=== PATIENT | female | born 1950 | race Caucasian/White ===

== ENCOUNTER 2017-09-15 15:35 | Observation (INO) | payer MEDICARE, OTHER ==
[2017-09-15] MEDS ORDERED: morphine 4 MG/ML VIAL IV (16:25)
[2017-09-15] MEDS ORDERED: ONDANSETRON 4 MG INJ IV ×2 (16:30→18:46)
[2017-09-15 17:48] LABS: ADD MAN DIFF? NO
[2017-09-15 17:51] LABS: ABNORMAL IP MESSAGE 1; BASOPHILS % 0.2 % (0.0-2.0); EOSINOPHILS # 0.2 10^3/ul (0.0-0.5); EOSINOPHILS % 1.7 % (0.0-7.0); HEMATOCRIT 32.3 % (37.0-47.0); HEMOGLOBIN 10.6 g/dl (12.0-16.0); LYMPHOCYTES # 4.5 10^3/ul (0.8-2.9); LYMPHOCYTES % 32.4 % (15.0-51.0); MEAN CORPUSCULAR HEMOGLOBIN 29.7 pg (29.0-33.0); MEAN CORPUSCULAR HGB CONC 32.8 g/dl (32.0-37.0); MEAN CORPUSCULAR VOLUME 90.5 fl (82.0-101.0); MEAN PLATELET VOLUME 8.8 fl (7.4-10.4); NEUTROPHIL # 7.1 10^3/ul (1.6-7.5); NEUTROPHILS % 50.5 % (39.0-77.0); PLATELET COUNT 512 10^3/UL (140-415); RED BLOOD COUNT 3.57 10^6/ul (4.20-5.40)
[2017-09-15 17:52] LABS: POSITIVE DIFF @See below
[2017-09-15 18:07] LABS: ANION GAP 15 (8-16); BLOOD UREA NITROGEN 27 mg/dl (7-20); CALCIUM 8.7 mg/dl (8.4-10.2); CARBON DIOXIDE 28 mmol/L (21-31); CHLORIDE 90 mmol/L (97-110); GLUCOSE 94 mg/dl (70-220); POTASSIUM 4.8 mmol/L (3.5-5.1); SODIUM 128 mmol/L (135-144)
[2017-09-15] MEDS: HYDROmorphONE 1 MG/ML SYG IV (19:58)
[2017-09-15] MEDS: ONDANSETRON 4 MG INJ IV (19:58)
[2017-09-16] MEDS ORDERED: hydrALAzine 20 MG INJ IV (01:00)
[2017-09-16] MEDS ORDERED: ACETAMINOPHEN 325 MG TAB PO (01:00)
[2017-09-16] MEDS: morphine 2 MG INJ IV ×3 (01:19→11:50)
[2017-09-16] MEDS: HYDROCODONE/APAP (5/325) TAB PO ×2 (02:43→10:04)
[2017-09-16] MEDS: ALBUTEROL/IPRATROPIUM (NEB) 3 ML AMP HHN (08:39)
[2017-09-16] MEDS: ENOXAPARIN 40 MG/0.4 ML SYG SC ×2 (09:00→09:58)
[2017-09-16] MEDS: ACETAMINOPHEN 325 MG TAB PO (09:56)
[2017-09-16] MEDS: ASPIRIN 81 MG TAB PO (09:56)
[2017-09-16] MEDS: LORAZEPAM 1 MG TAB PO (14:28)
[2017-09-16] MEDS ORDERED: LORAZEPAM 1 MG TAB PO (15:30)
[2017-09-16] MEDS: CEFTRIAXONE 1 GM/50 ML (PMX) 50 ML IVPB (16:00)
[2017-09-16] MEDS ORDERED: OXYCODONE/ACETAMINOPHEN (5/325) TAB PO (18:00)
[2017-09-16] MEDS ORDERED: NAPROXEN 500 MG TAB PO (21:00)
[2017-09-16] MEDS ORDERED: BENAZEPRIL 40 MG TAB PO (21:00)
[2017-09-16] MEDS ORDERED: QUETIAPINE 100 MG TAB PO (21:00)
[2017-09-17] MEDS ORDERED: AMLODIPINE 5 MG TAB PO (09:00)
[2017-09-17] MEDS ORDERED: FUROSEMIDE 20 MG TAB PO (09:00)
[2017-09-17] MEDS ORDERED: ISOSORBIDE MONONITRATE(SR)60 MG TAB PO (09:00)
[2017-09-17] MEDS ORDERED: RIVASTIGMINE 1.5 MG CAP PO (09:00)
[2017-09-17] MEDS ORDERED: DONEPEZIL 10 MG TAB PO (09:00)
== END 2017-09-16 16:30 | disposition left against medical advice (07) ==
LOC: MS1 16:25 → E/R 15:35
DX: M25.551 Pain in right hip (principal); I10 Essential (primary) hypertension; F41.9 Anxiety disorder, unspecified; F32.9 Major depressive disorder, single episode, unspecified; Z88.2 Allergy status to sulfonamides; Z88.1 Allergy status to other antibiotic agents
CPT/HCPCS: 73500; 80048; 85025; 94664; 96374; 96375; 99285-25

== ENCOUNTER 2017-09-17 10:41 | Observation (INO) | payer MEDICARE, OTHER ==
[2017-09-17] MEDS ORDERED: ONDANSETRON 4 MG INJ IV ×2 (14:00→14:30)
[2017-09-17] MEDS ORDERED: hydrALAzine 20 MG INJ IV (14:30)
[2017-09-17] MEDS: LORAZEPAM 1 MG TAB PO (15:54)
[2017-09-17] MEDS: ACETAMINOPHEN 325 MG TAB PO (15:54)
[2017-09-17] MEDS ORDERED: OXYCODONE/ACETAMINOPHEN (5/325) TAB PO (18:00)
[2017-09-17] MEDS ORDERED: ZIPRASIDONE 20 MG CAP PO (21:00)
[2017-09-17] MEDS ORDERED: QUETIAPINE 100 MG TAB PO (21:00)
[2017-09-17] MEDS ORDERED: BENAZEPRIL 40 MG TAB PO (21:00)
[2017-09-17] MEDS ORDERED: NAPROXEN 500 MG TAB PO (21:00)
[2017-09-18] MEDS ORDERED: RIVASTIGMINE 1.5 MG CAP PO (09:00)
[2017-09-18] MEDS ORDERED: DONEPEZIL 10 MG TAB PO (09:00)
[2017-09-18] MEDS ORDERED: AMLODIPINE 5 MG TAB PO (09:00)
[2017-09-18] MEDS ORDERED: FUROSEMIDE 20 MG TAB PO (09:00)
[2017-09-18] MEDS ORDERED: ISOSORBIDE MONONITRATE(SR)60 MG TAB PO (09:00)
== END 2017-09-17 19:01 | disposition left against medical advice (07) ==
LOC: OBV 13:33 → FTE 10:41
DX: Z53.21 Procedure and treatment not carried out due to patient leaving prior to being seen by health care provider (principal); M25.551 Pain in right hip
CPT/HCPCS: 99282

== ENCOUNTER 2017-09-25 10:37 | Inpatient (IN) | payer MEDICARE, OTHER ==
[2017-09-25 17:55] LABS: ADD MAN DIFF? NO
[2017-09-25 17:57] LABS: WHITE BLOOD COUNT 11.3 10^3/ul (4.8-10.8)
[2017-09-25 17:57] LABS: BASOPHILS % 0.2 % (0.0-2.0); EOSINOPHILS # 0.2 10^3/ul (0.0-0.5); EOSINOPHILS % 1.3 % (0.0-7.0); HEMOGLOBIN 10.7 g/dl (12.0-16.0); LYMPHOCYTES # 2.7 10^3/ul (0.8-2.9); LYMPHOCYTES % 23.4 % (15.0-51.0); MEAN CORPUSCULAR HEMOGLOBIN 30.1 pg (29.0-33.0); MEAN CORPUSCULAR HGB CONC 33.4 g/dl (32.0-37.0); MEAN CORPUSCULAR VOLUME 90.1 fl (82.0-101.0); MEAN PLATELET VOLUME 8.9 fl (7.4-10.4); MONOCYTE # 1.1 10^3/ul (0.3-0.9); NEUTROPHIL # 7.3 10^3/ul (1.6-7.5); NEUTROPHILS % 64.7 % (39.0-77.0); PLATELET COUNT 498 10^3/UL (140-415); RED BLOOD COUNT 3.55 10^6/ul (4.20-5.40); RED CELL DISTRIBUTION WIDTH 14.2 % (11.5-14.5)
[2017-09-25 18:11] LABS: INR 0.87; PROTIME 11.9 Sec (11.9-14.9); PT RATIO 0.9
[2017-09-25 18:12] LABS: PARTIAL THROMBOPLASTIN TIME 26.5 Sec (25.0-35.0)
[2017-09-25 18:18] LABS: ALANINE AMINOTRANSFERASE 40 IU/L (13-69); ALBUMIN 4.3 g/dl (3.3-4.9); ALKALINE PHOSPHATASE 131 IU/L (42-121); ANION GAP 15 (8-16); ASPARTATE AMINO TRANSFERASE 28 IU/L (15-46); BILIRUBIN,INDIRECT 0.1 mg/dl (0-1.1); BILIRUBIN,TOTAL 0.1 mg/dl (0.2-1.3); BLOOD UREA NITROGEN 28 mg/dl (7-20); CALCIUM 9.4 mg/dl (8.4-10.2); CARBON DIOXIDE 26 mmol/L (21-31); CHLORIDE 100 mmol/L (97-110); CREATININE 1.37 mg/dl (0.44-1.00); GLUCOSE 96 mg/dl (70-220); POTASSIUM 4.1 mmol/L (3.5-5.1); SODIUM 137 mmol/L (135-144); TOTAL PROTEIN 7.6 g/dl (6.1-8.1)
[2017-09-25 18:18] LABS: LACTIC ACID 1.2 mmol/L (0.5-2.0)
[2017-09-25 18:31] LABS: TROPONIN-I < 0.012 ng/ml (0.00-0.12)
[2017-09-25 19:17] LABS: ERYTHROCYTE SEDIMENTATION RATE 41 mm/Hr (0-30)
[2017-09-25] MEDS: HYDROCODONE/APAP (10/325) TAB PO (19:18)
[2017-09-25 20:20] LABS: ADD UMIC YES; UR ASCORBIC ACID NEGATIVE (NEGATIVE); UR BACTERIA FEW /HPF (NONE SEEN); UR BILIRUBIN (Dip) NEGATIVE (NEGATIVE); UR BLOOD (Dip) NEGATIVE (NEGATIVE); UR CLARITY CLEAR (CLEAR); UR COLOR STRAW (YELLOW); UR GLUCOSE (Dip) NEGATIVE (NEGATIVE); UR KETONES (Dip) TRACE mg/dL (NEGATIVE); UR LEUKOCYTE ESTERASE (Dip) 2+ Leu/ul (NEGATIVE); UR NITRITE (Dip) NEGATIVE (NEGATIVE); UR RBC 0 /HPF (0-5); UR SPECIFIC GRAVITY (Dip) 1.004 (1.003-1.030); UR TOTAL PROTEIN (Dip) NEGATIVE (NEGATIVE); UR UROBILINOGEN (Dip) NEGATIVE (NEGATIVE); UR WBC 7 /HPF (0-5)
[2017-09-25 21:50] LABS: LACTIC ACID 1.6 mmol/L (0.5-2.0)
== END 2017-09-25 22:45 | disposition left against medical advice (07) | DRG 93 ==
LOC: MS2 21:25 → FTE 10:37 → E/R 22:45
DX: G89.29 Other chronic pain (principal); J44.9 Chronic obstructive pulmonary disease, unspecified; I10 Essential (primary) hypertension; D64.9 Anemia, unspecified; M54.5 Low back pain; N28.9 Disorder of kidney and ureter, unspecified; F31.9 Bipolar disorder, unspecified
CPT/HCPCS: 36415; 71045; 72100; 80053; 81001; 83605; 84484; 85025; 85610; 85651; 85730; 87040; 87086; 93005; 93971; 99285

== ENCOUNTER 2017-09-26 13:34 | Inpatient (IN) | payer MEDICARE, OTHER ==
[2017-09-26] MEDS ORDERED: ALBUTEROL/IPRATROPIUM (NEB) 3 ML AMP HHN (21:00)
[2017-09-26] MEDS ORDERED: ACETAMINOPHEN 325 MG TAB PO (21:00)
[2017-09-26] MEDS: ALBUTEROL/IPRATROPIUM (NEB) 3 ML AMP HHN (21:00)
[2017-09-26] MEDS: DEXTROSE 5%-0.45% NACL 1,000 ML IV (21:51)
[2017-09-26] MEDS: ZOLPIDEM 5 MG TAB PO (21:51)
[2017-09-26] MEDS: KETOROLAC 15 MG INJ IV (21:51)
[2017-09-27] MEDS: LORAZEPAM 1 MG TAB PO ×2 (02:17→15:35)
[2017-09-27 05:52] LABS: ADD MAN DIFF? NO
[2017-09-27 06:05] LABS: BASOPHILS % 0.5 % (0.0-2.0); EOSINOPHILS # 0.1 10^3/ul (0.0-0.5); EOSINOPHILS % 2.2 % (0.0-7.0); HEMATOCRIT 28.3 % (37.0-47.0); HEMOGLOBIN 9.3 g/dl (12.0-16.0); LYMPHOCYTES # 1.7 10^3/ul (0.8-2.9); LYMPHOCYTES % 28.9 % (15.0-51.0); MEAN CORPUSCULAR HEMOGLOBIN 30.5 pg (29.0-33.0); MEAN CORPUSCULAR HGB CONC 32.9 g/dl (32.0-37.0); MEAN CORPUSCULAR VOLUME 92.8 fl (82.0-101.0); MEAN PLATELET VOLUME 9.5 fl (7.4-10.4); MONOCYTE # 0.7 10^3/ul (0.3-0.9); MONOCYTES % 11.9 % (0.0-11.0); NEUTROPHIL # 3.4 10^3/ul (1.6-7.5); NEUTROPHILS % 56.3 % (39.0-77.0); PLATELET COUNT 373 10^3/UL (140-415); RED BLOOD COUNT 3.05 10^6/ul (4.20-5.40); RED CELL DISTRIBUTION WIDTH 14.6 % (11.5-14.5)
[2017-09-27 06:54] LABS: ALANINE AMINOTRANSFERASE 37 IU/L (13-69); ALBUMIN 3.3 g/dl (3.3-4.9); ALKALINE PHOSPHATASE 89 IU/L (42-121); ANION GAP 11 (8-16); ASPARTATE AMINO TRANSFERASE 29 IU/L (15-46); BLOOD UREA NITROGEN 35 mg/dl (7-20); CALCIUM 8.9 mg/dl (8.4-10.2); CARBON DIOXIDE 29 mmol/L (21-31); CHLORIDE 100 mmol/L (97-110); CREATININE 1.51 mg/dl (0.44-1.00); GLUCOSE 114 mg/dl (70-220); POTASSIUM 4.7 mmol/L (3.5-5.1); SODIUM 135 mmol/L (135-144); TOTAL PROTEIN 6.3 g/dl (6.1-8.1)
[2017-09-27] MEDS: QUETIAPINE 100 MG TAB PO ×3 (08:16→21:30)
[2017-09-27] MEDS: RIVASTIGMINE 1.5 MG CAP PO (08:16)
[2017-09-27] MEDS: KETOROLAC 15 MG INJ IV (08:17)
[2017-09-27] MEDS: ENOXAPARIN 30 MG/0.3 ML SYG SC (08:19)
[2017-09-27] MEDS: ALBUTEROL/IPRATROPIUM (NEB) 3 ML AMP HHN ×3 (08:31→17:38)
[2017-09-27] MEDS ORDERED: QUETIAPINE 100 MG TAB PO (09:00)
[2017-09-27] MEDS ORDERED: BENAZEPRIL 40 MG TAB PO (09:00)
[2017-09-27] MEDS ORDERED: DONEPEZIL 10 MG TAB PO (09:00)
[2017-09-27] MEDS ORDERED: AMLODIPINE 5 MG TAB PO (09:00)
[2017-09-27] MEDS ORDERED: ISOSORBIDE MONONITRATE(SR)60 MG TAB PO (09:00)
[2017-09-27] MEDS: DEXTROSE 5%-0.45% NACL 1,000 ML IV (14:18)
[2017-09-27] MEDS: BETAMET NA PHOS/AC(6 MG/ML) 5ML INJ INJ (17:44)
[2017-09-27] MEDS: BUPIVACAINE 0.5%/EPI (SDV) 30 ML INJ INJ (17:44)
[2017-09-27] MEDS ORDERED: CYCLOBENZAPRINE 10 MG TAB PO (21:00)
[2017-09-27] MEDS: ZOLPIDEM 5 MG TAB PO (21:30)
[2017-09-27] MEDS: ZIPRASIDONE 20 MG CAP PO (21:33)
[2017-09-28] MEDS: KETOROLAC 15 MG INJ IV ×2 (04:50→10:59)
[2017-09-28] MEDS: LORAZEPAM 1 MG TAB PO ×2 (04:51→15:59)
[2017-09-28] MEDS: DEXTROSE 5%-0.45% NACL 1,000 ML IV ×2 (05:05→23:00)
[2017-09-28 05:33] LABS: ADD MAN DIFF? NO
[2017-09-28 05:37] LABS: ABNORMAL IP MESSAGE 1; HEMATOCRIT 32.7 % (37.0-47.0); HEMOGLOBIN 10.8 g/dl (12.0-16.0); LYMPHOCYTES # 0.6 10^3/ul (0.8-2.9); LYMPHOCYTES % 7.9 % (15.0-51.0); MEAN CORPUSCULAR HEMOGLOBIN 30.3 pg (29.0-33.0); MEAN CORPUSCULAR VOLUME 91.9 fl (82.0-101.0); MEAN PLATELET VOLUME 9.3 fl (7.4-10.4); MONOCYTE # 0.1 10^3/ul (0.3-0.9); MONOCYTES % 0.7 % (0.0-11.0); NEUTROPHIL # 6.8 10^3/ul (1.6-7.5); PLATELET COUNT 472 10^3/UL (140-415); RED BLOOD COUNT 3.56 10^6/ul (4.20-5.40); RED CELL DISTRIBUTION WIDTH 13.9 % (11.5-14.5)
[2017-09-28 05:37] LABS: WHITE BLOOD COUNT 7.5 10^3/ul (4.8-10.8)
[2017-09-28 06:23] LABS: POSITIVE DIFF @See below
[2017-09-28 07:05] LABS: ANION GAP 16 (8-16); BLOOD UREA NITROGEN 34 mg/dl (7-20); CALCIUM 9.5 mg/dl (8.4-10.2); CARBON DIOXIDE 24 mmol/L (21-31); CHLORIDE 106 mmol/L (97-110); GLUCOSE 173 mg/dl (70-220); POTASSIUM 4.9 mmol/L (3.5-5.1); SODIUM 141 mmol/L (135-144)
[2017-09-28] MEDS: ALBUTEROL/IPRATROPIUM (NEB) 3 ML AMP HHN ×3 (08:48→17:00)
[2017-09-28] MEDS: QUETIAPINE 100 MG TAB PO ×3 (08:58→21:43)
[2017-09-28] MEDS: RIVASTIGMINE 1.5 MG CAP PO (08:58)
[2017-09-28] MEDS: ENOXAPARIN 30 MG/0.3 ML SYG SC (08:59)
[2017-09-28] MEDS: ZIPRASIDONE 20 MG CAP PO (21:42)
[2017-09-29] MEDS: DEXTROSE 5%-0.45% NACL 1,000 ML IV (00:15)
[2017-09-29 06:11] LABS: ADD MAN DIFF? NO
[2017-09-29] MEDS: KETOROLAC 15 MG INJ IV ×2 (06:11→12:41)
[2017-09-29 06:30] LABS: WHITE BLOOD COUNT 11.4 10^3/ul (4.8-10.8)
[2017-09-29 06:30] LABS: BASOPHILS % 0.1 % (0.0-2.0); HEMATOCRIT 29.3 % (37.0-47.0); HEMOGLOBIN 9.7 g/dl (12.0-16.0); LYMPHOCYTES # 1.1 10^3/ul (0.8-2.9); LYMPHOCYTES % 9.9 % (15.0-51.0); MEAN CORPUSCULAR HEMOGLOBIN 30.3 pg (29.0-33.0); MEAN CORPUSCULAR HGB CONC 33.1 g/dl (32.0-37.0); MEAN CORPUSCULAR VOLUME 91.6 fl (82.0-101.0); MEAN PLATELET VOLUME 9.3 fl (7.4-10.4); MONOCYTES % 8.6 % (0.0-11.0); NEUTROPHIL # 9.2 10^3/ul (1.6-7.5); PLATELET COUNT 425 10^3/UL (140-415); RED CELL DISTRIBUTION WIDTH 13.9 % (11.5-14.5)
[2017-09-29 07:11] LABS: ANION GAP 13 (8-16); BLOOD UREA NITROGEN 27 mg/dl (7-20); CALCIUM 9.1 mg/dl (8.4-10.2); CARBON DIOXIDE 25 mmol/L (21-31); CHLORIDE 107 mmol/L (97-110); CREATININE 1.07 mg/dl (0.44-1.00); GLUCOSE 109 mg/dl (70-220); POTASSIUM 4.7 mmol/L (3.5-5.1); SODIUM 140 mmol/L (135-144)
[2017-09-29] MEDS: ALBUTEROL/IPRATROPIUM (NEB) 3 ML AMP HHN ×3 (08:37→16:49)
[2017-09-29] MEDS: QUETIAPINE 100 MG TAB PO ×2 (08:42→12:41)
[2017-09-29] MEDS: LORAZEPAM 1 MG TAB PO (08:42)
[2017-09-29] MEDS: RIVASTIGMINE 1.5 MG CAP PO (08:42)
[2017-09-29] MEDS: ENOXAPARIN 30 MG/0.3 ML SYG SC (08:44)
[2017-09-29] MEDS: INFLUENZA VIRUS VACCINE 0.5 ML (DISPENSING) IM* (16:34)
== END 2017-09-29 18:20 | disposition home health service (06) | DRG 556 ==
LOC: E/R 13:34 → MS2 17:01
PROC: 3E0U33Z Introduction of Anti-inflammatory into Joints, Percutaneous Approach (ICD-10-PCS; principal; 2017-09-27)
PROC: 3E0U3BZ Introduction of Anesthetic Agent into Joints, Percutaneous Approach (ICD-10-PCS; 2017-09-27)
DX: M25.551 Pain in right hip (principal); N17.9 Acute kidney failure, unspecified; J44.9 Chronic obstructive pulmonary disease, unspecified; F03.90 Unspecified dementia, unspecified severity, without behavioral disturbance, psychotic disturbance, mood disturbance, and anxiety; I10 Essential (primary) hypertension; G89.29 Other chronic pain; F31.9 Bipolar disorder, unspecified; Z98.890 Other specified postprocedural states; M54.5 Low back pain
CPT/HCPCS: 72158; 73510; 73550; 73590; 80048; 80053; 85025; 93306; 94640; 94664; 97110; 97116; 97162; 97530; 99217; 99285-25

== ENCOUNTER 2017-10-13 17:12 | Emergency (ER) | payer SELFPAY, OTHER, MEDICARE | END 2017-10-13 21:56 | disposition left against medical advice (07) | LOC: FTE 17:12 | DX: Z53.21 Procedure and treatment not carried out due to patient leaving prior to being seen by health care provider (principal) ==

== ENCOUNTER 2018-03-15 10:48 | Emergency (ER) | payer MEDICARE, OTHER ==
[2018-03-15] MEDS: SOD CHLORIDE 0.9% 1,000 ML IV (11:39)
[2018-03-15 12:01] LABS: ADD UMIC NO; UR ASCORBIC ACID NEGATIVE (NEGATIVE); UR BILIRUBIN (Dip) NEGATIVE (NEGATIVE); UR BLOOD (Dip) NEGATIVE (NEGATIVE); UR CLARITY CLEAR (CLEAR); UR COLOR COLORLESS (YELLOW); UR GLUCOSE (Dip) NEGATIVE (NEGATIVE); UR KETONES (Dip) NEGATIVE (NEGATIVE); UR LEUKOCYTE ESTERASE (Dip) NEGATIVE Leu/ul (NEGATIVE); UR NITRITE (Dip) NEGATIVE (NEGATIVE); UR SPECIFIC GRAVITY (Dip) 1.004 (1.003-1.030); UR TOTAL PROTEIN (Dip) NEGATIVE (NEGATIVE); UR UROBILINOGEN (Dip) NEGATIVE (NEGATIVE)
[2018-03-15 12:52] LABS: ADD MAN DIFF? NO
[2018-03-15 12:57] LABS: BASOPHILS % 0.5 % (0.0-2.0); EOSINOPHILS # 0.2 10^3/ul (0.0-0.5); EOSINOPHILS % 2.6 % (0.0-7.0); HEMATOCRIT 31.9 % (37.0-47.0); LYMPHOCYTES # 2.4 10^3/ul (0.8-2.9); LYMPHOCYTES % 30.2 % (15.0-51.0); MEAN CORPUSCULAR HEMOGLOBIN 27.4 pg (29.0-33.0); MEAN CORPUSCULAR HGB CONC 31.3 g/dl (32.0-37.0); MEAN CORPUSCULAR VOLUME 87.4 fl (82.0-101.0); MEAN PLATELET VOLUME 9.9 fl (7.4-10.4); MONOCYTE # 0.9 10^3/ul (0.3-0.9); NEUTROPHIL # 4.4 10^3/ul (1.6-7.5); NEUTROPHILS % 55.6 % (39.0-77.0); PLATELET COUNT 375 10^3/UL (140-415); RED BLOOD COUNT 3.65 10^6/ul (4.20-5.40); RED CELL DISTRIBUTION WIDTH 16.8 % (11.5-14.5)
[2018-03-15 12:57] LABS: WHITE BLOOD COUNT 7.9 10^3/ul (4.8-10.8)
[2018-03-15 13:14] LABS: ALANINE AMINOTRANSFERASE 17 IU/L (13-69); ALBUMIN/GLOBULIN RATIO 1.25; ALKALINE PHOSPHATASE 86 IU/L (42-121); AMYLASE 75 U/L (11-123); ANION GAP 14 (8-16); ASPARTATE AMINO TRANSFERASE 25 IU/L (15-46); BILIRUBIN,INDIRECT 0.1 mg/dl (0-1.1); BILIRUBIN,TOTAL 0.1 mg/dl (0.2-1.3); BLOOD UREA NITROGEN 27 mg/dl (7-20); CALCIUM 8.6 mg/dl (8.4-10.2); CARBON DIOXIDE 26 mmol/L (21-31); CHLORIDE 105 mmol/L (97-110); CREATININE 1.37 mg/dl (0.44-1.00); GLUCOSE 84 mg/dl (70-220); LIPASE 68 U/L (23-300); POTASSIUM 4.5 mmol/L (3.5-5.1); SODIUM 140 mmol/L (135-144); TOTAL PROTEIN 7.2 g/dl (6.1-8.1)
[2018-03-15 13:25] LABS: TROPONIN-I < 0.010 ng/ml (0.000-0.120)
[2018-03-15 13:31] LABS: INR 0.88; PARTIAL THROMBOPLASTIN TIME 24.1 Sec (25.0-35.0); PT RATIO 0.9
[2018-03-15] MEDS: FENTAnyl 50 MCG/ML VIAL IV (14:37)
== END 2018-03-15 18:45 | disposition home or self-care (01) ==
LOC: E/R 10:48
DX: S33.5XXA Sprain of ligaments of lumbar spine, initial encounter (principal); S73.101A Unspecified sprain of right hip, initial encounter; R41.0 Disorientation, unspecified; R40.2142 Coma scale, eyes open, spontaneous, at arrival to emergency department; R40.2252 Coma scale, best verbal response, oriented, at arrival to emergency department; R40.2362 Coma scale, best motor response, obeys commands, at arrival to emergency department; I10 Essential (primary) hypertension; J44.9 Chronic obstructive pulmonary disease, unspecified; R10.9 Unspecified abdominal pain; W01.10XA Fall on same level from slipping, tripping and stumbling with subsequent striking against unspecified object, initial encounter; Y92.009 Unspecified place in unspecified non-institutional (private) residence as the place of occurrence of the external cause
CPT/HCPCS: 70450; 71045; 72192; 80053; 81003; 82150; 83690; 84484; 85025; 85610; 85730; 87040; 87086; 93005; 99285-25

== ENCOUNTER 2018-03-26 10:25 | Emergency (ER) | payer SELFPAY, OTHER, MEDICARE | END 2018-03-26 12:52 | disposition left against medical advice (07) | LOC: E/R 12:52 | DX: Z53.21 Procedure and treatment not carried out due to patient leaving prior to being seen by health care provider (principal) ==

== ENCOUNTER → 2018-04-20 | Outpatient (CLI) | payer MEDICARE, OTHER | END | disposition home or self-care (01) | LOC: RAD 16:33 | DX: M25.512 Pain in left shoulder (principal) | CPT/HCPCS: 73030 ==

== ENCOUNTER 2018-04-29 09:30 | Emergency (ER) | payer MEDICARE, OTHER | END 2018-04-29 17:06 | disposition home or self-care (01) | LOC: E/R 09:30 | DX: S43.402A Unspecified sprain of left shoulder joint, initial encounter (principal); S09.90XA Unspecified injury of head, initial encounter; S13.9XXA Sprain of joints and ligaments of unspecified parts of neck, initial encounter; J44.9 Chronic obstructive pulmonary disease, unspecified; I10 Essential (primary) hypertension; F17.210 Nicotine dependence, cigarettes, uncomplicated; R51 Headache; W18.39XA Other fall on same level, initial encounter; Y92.9 Unspecified place or not applicable | CPT/HCPCS: 70450; 72125; 73030; 99284-25 ==